=== PATIENT | female | born 1985 | race Caucasian/White ===

== ENCOUNTER 2022-01-12 09:21 | Outpatient (CLI) | payer MEDICAID, SELFPAY ==
[2022-01-12 13:15] LABS: Albumin* 4.6 g/dL (3.3-5.0); Chloride* 102 mmol/L (96-114); Potassium* 4.2 mmol/L (3.6-5.1); Sodium* 138 mmol/L (135-149)
[2022-01-12 13:18] LABS: Alanine Aminotransferase* 44 U/L (4-35); Alkaline Phosphatase* 100 U/L (40-150); Aspartate Amino Transferase* 40 U/L (12-35); Bilirubin Total* 1.5 mg/dL (0.1-1.5); Blood Urea Nitrogen* 11 mg/dL (5-24); Carbon Dioxide* 25 mmol/L (20-32); Creatinine* 0.5 mg/dL (0.5-1.5); Estimated Glomerular Filt Rate 123.81; Glucose* 121 mg/dL (60-115); Total Protein* 7.4 g/dL (6.0-8.3)
[2022-01-12 13:19] LABS: Calcium* 9.3 mg/dL (8.4-10.6)
[2022-01-12 13:37] LABS: Vitamin D 25 Hydroxy* 40 ng/mL (30-80)
== END 2022-01-12 09:22 | disposition home or self-care (01) ==
PROVIDERS: PCP Family Medicine; Visit Provider Nurse Practitioner Family
DX: E55.9 Vitamin D deficiency, unspecified (principal); Z79.899 Other long term (current) drug therapy
CPT/HCPCS: 80053; 82306; 82652; 84443

== ENCOUNTER 2022-04-11 09:13 | Outpatient (CLI) | payer MEDICAID, SELFPAY ==
--- OUTSIDE RECORDS SUMMARY | 2022-04-11 09:37 | XMS_ITS | Clinical Summary ---
:1985 Author Organization [employer] [facility] [place] [address] Care Team Providers Name Role Phone Oscar Purcell MD Primary Care Provider [phone] Allergies Active Allergy Reactions Severity Noted Date Comments Blood-Group Specific Other - Describe In Unknown 05/06/2010 Patient has a passive Substance Comment Field anti-D. Blood product orders may be delayed. Please draw one red top and two purple top tube s for all Type and Screen/Type and Crossmatch orde rs. Hydrocodone Hives, Rash Unknown 05/06/2010 Medications Medication Sig Dispensed Refills Start Date End Date Status Adapalene 0.3 % APPLY A PEA-SIZED 2 02/23/2018 Active topical gel AMOUNT TO ACNE AT BEDTIME BP 5 % gel JO-ANN EXT AA Q HS 2 02/23/2018 Ac tive clindamycin 1% JO-ANN TO FACIAL 2 12/29/2017 Active (CLEOCIN-T) 1 % gel AREAS QHS minocycline (MINOCIN) TK 1 C PO BID 2 02/23/2018 Active 100 mg capsule spironolactone TK 2 TS PO QAM 3 02/23/2018 Active (ALDACTONE) 50 mg tablet spironolactone 0 03/11/2018 Acti ve (ALDACTONE) 25 mg tablet cyclobenzaprine TAKE 1 TABLET BY 60 tablet 0 04/30/2018 Active (FLEXERIL) 10 mg MOUTH THREE TIMES tabletIndications: DAILY. Chronic bilateral low back pain, with sciatica presence unspecified levonorgestrel Inject 1 Device 1 Device 0 04/08/2016 Active intrauterine device intrauterine one (MIRENA) 20 mcg/24 time for 1 dose. hours (5 yrs) 52 mg IUDIndications: IUD (intrauterine device) in place traMADol (ULTRAM) 50 Take 1 tablet by 50 tablet 0 04/30/2019 Active mg tabletIndications: mouth every 6 Chronic bilateral low hours if needed. back pain venlafaxine (EFFEXOR Take 1 capsule by 30 capsule 1 05/23/2019 Active XR) 150 mg mouth once daily Extended-Release with a meal. capsuleIndications: Moderate episode of recurrent major depressive disorder (HC) busPIRone (BUSPAR) 10 Take 1 tablet by 60 tablet 3 05/23/2019 Active mg tabletIndications: mouth 2 times Anxiety daily. hydrOXYzine pamoate Take 1 capsule by 60 capsule 0 05/23/2019 Active (VISTARIL) 25 mg mouth once daily. capsuleIndications: Anxiety DULoxetine (CYMBALTA) Take 60 mg by 0 12/04/2021 Active 60 mg Delayed-release mouth once daily. capsule levothyroxine 0 12/09/2021 Activ e (SYNTHROID) 100 mcg tablet lidocaine 5 % topical PLACE 1 PATCH ONTO 0 2 Active patch THE SKIN EVERY 24 HOURS FOR 10 DAYS prazosin (MINIPRESS) Take 2 mg by mouth 0 08/24/2021 Active 2 mg capsule at bedtime. Adderall XR 30 mg Take 30 mg by 0 12/21/2021 Active Extended-Release mouth once daily. capsule Active Problems Problem Noted Date Cervical high risk HPV (human papillomavirus) test pos itive 04/08/2019 Overview: 03/2019 NIL/HPV+, HPV 18+, HPV 16 negati ve 08/2019 [place]: Cervicitis Plan: Repeat pap/HPV testing in 1 year ( DUE 08/2020) Controlled substance agreement signed 04/18/2018 Overview: Controlled substance agreement for Adder all on file and signed 04/18/18. Designated pharmacy: [facility] Prescribing physician: Opal Iglesias CNP. Diagnosis: ADHD Maryann Tang .................... 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 Moderate episode of recurrent major depressive disorde r 10/31/2017 Anxiety 10/31/2017 Obesity (BMI 30-39.9) 10/31/2017 Resolved Problems Problem Noted Date Resolved Date Threatened premature labor, antepartum(644.03) 05/06/2010 10/31/2017 Obesity in , antepartum 05/06/2010 018 with other poor obstetric history(V23.49) 05/06/20 10 10/31/2017 Immunizations Name Administration Dates Next Due Influenza Virus, Unspecified 05/11/2002 Influenza, IIV4 05/04/2010, 03/30/2009, 04/24/2004 Td (Age >=7 Years) 10/31/2017, 02/07/1998 Tdap 03/30/2009 Family History Medical History Relation Name Comments Alcoholism Brother Diabetes Brother Cancer Mother Depression Mother Diabetes Mother Hypertension Mother Obesity Mother Relation Name Status Comments Brother Mother Social History Tobacco Use Types Packs/Day Years Used Date Former Smoker Smokeless Tobacco: Never Used Tobacco Cessation: Counseling Given: Yes Alcohol Use Standard Drinks/Week Comments No 0 (1 standard drink = 0.6 oz pure alcoho l) Sex Assigned at Date Recorded Not on file Obstetrics History Para Term AB IAB SAB Ectopic Multiple Living Live Births 5 3 1 2 1 1 3 3 Date Outcome GA Total Labor/2nd/3rd Weight Sex Delivery Anes PTL Kaycee A 1 A5 Name Clin Labor 05/29 Term 39w 3.4 kg F Vag-Spont Y Raina Ch dread 02 0d (7 lb 8 ng a oz) Delivery Location: [facility] 07/2003 32w0d 1.42 kg (3 lb 2 oz) M Vag-Spont Y Living [place] Delivery Location: [facility] 07/2004 35w0d 3.83 kg (8 lb 7 oz) F Vag-Spont Living [place] Delivery Location: [facility] 08/2008 SAB 6w0d SPONTANEOUS Last Filed Vital Signs Vital Sign Reading Time Taken Comments Blood Pressure 122/82 08/16/2019 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 Pulse 88 08/16/2019 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 Temperature 36.9 ??C (98.4 ??F) 12/10/2021 9:46 AM CDT Respiratory Rate 18 05/08/2010 10:00 AM CDT Oxygen Saturation 98% 05/06/2010 4:00 PM CDT Inhaled Oxygen Concentration - - Weight 131.5 kg (290 lb) 01/07/2022 1:35 PM CDT Height 170.2 cm (5' 7) 01/07/2022 1:35 PM CDT Body Mass Index 45.42 01/07/2022 1:35 PM CDT Plan of Treatment Health Maintenance Due Date Last Done Comments Hepatitis C screening for age 1004/19/2002 18-79 Depression screening for age 12+ 05/23/2020 05/23/2019, , 04/05/2019, Additional history exists Pap test for age 21-65 09/05/2020 09/05/2019, 04/08/2019, 04/08/2019, Additional history exists COVID-19 vaccine series (3 - 05/18/2021 12/16/2020, 021 Booster for Pfizer series) Influenza for age 9-49 03/10/2022 05/04/2010, 03/30/2009, 04/24/2004, Additional history exists BMI (ht and wt on same day) for 01/07/2023 01/07/2022, 06/0 09/2021, age 18+ 08/16/2019, Additional history exists Tetanus booster 11/01/2027 10/31/2017, 03/30/2009, 02/07/1998 Tdap Completed 03/30/2009 Results Not on filefrom Last 3 Months Insurance Payer Benefit Plan / Subscriber ID Effective Dates Phone Addre ss Type Group SAUL HUGHES MA [id number] 2021-Present [address] [place] [address] [id number] (Home) [address] [address] [place] [address] Advance Directives Latest Code Status on File Code Status Date Activated Date Inactivated Comments Full Code 05/06/2010 2:23 AM 05/08/2010 12:57 PM 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
[2022-04-11 10:53] LABS: Albumin* 4.2 g/dL (3.3-5.0); Chloride* 101 mmol/L (96-114)
[2022-04-11 10:54] LABS: Potassium* 4.1 mmol/L (3.6-5.1); Sodium* 137 mmol/L (135-149)
[2022-04-11 10:56] LABS: Alkaline Phosphatase* 104 U/L (40-150); Aspartate Amino Transferase* 24 U/L (12-35); Bilirubin Total* 0.4 mg/dL (0.1-1.5); Blood Urea Nitrogen* 14 mg/dL (5-24); Carbon Dioxide* 25 mmol/L (20-32); Cholesterol* 165 mg/dL (90-199); Creatinine* 0.6 mg/dL (0.5-1.5); Estimated Glomerular Filt Rate 118 ml/min; Glucose* 118 mg/dL (60-115); Triglycerides* 73 mg/dL (40-149)
[2022-04-11 10:57] LABS: Alanine Aminotransferase* 22 U/L (4-35); Calcium* 9.2 mg/dL (8.4-10.6); HDL Cholesterol* 47 mg/dL (>=50); LDL Cholesterol Calculated 103 mg/dL (<100)
[2022-04-11 11:10] LABS: Vitamin D 25 Hydroxy* 34 ng/mL (30-80)
== END 2022-04-11 09:14 | disposition home or self-care (01) ==
PROVIDERS: PCP Family Medicine; Visit Provider Family Medicine
DX: Z00.00 Encounter for general adult medical examination without abnormal findings (principal); E55.9 Vitamin D deficiency, unspecified; E78.5 Hyperlipidemia, unspecified; R73.03 Prediabetes; R79.89 Other specified abnormal findings of blood chemistry; E66.01 Morbid (severe) obesity due to excess calories; Z68.42 Body mass index [BMI] 45.0-49.9, adult; E03.9 Hypothyroidism, unspecified
CPT/HCPCS: 80053; 80061; 82306; 84443

== ENCOUNTER 2022-07-27 08:30 | Outpatient (CLI) | payer MEDICAID, SELFPAY ==
[2022-07-27 12:16] LABS: Chlamydia DNA Amplified* NOT DETECTED (No Detected); GC DNA Amplified* NOT DETECTED (No Detected)
== END 2022-07-27 08:31 | disposition home or self-care (01) ==
LOC: NFLDREF 08:35
PROVIDERS: PCP Family Medicine; Visit Provider Registered Nurse
DX: Z11.3 Encounter for screening for infections with a predominantly sexual mode of transmission (principal)
CPT/HCPCS: 87491; 87591

== ENCOUNTER 2025-04-25 08:00 | Outpatient (CLI) | payer MEDICAID, SELFPAY ==
[2025-04-25 21:36] LABS: Hematocrit* 46.6 % (33.0-51.0); Hemoglobin* 14.9 gm/dL (12.0-16.0); Immature Granulocytes Pct Auto 0.1 %; Mean Corpuscular HGB Conc 32 gm/dL (32-36); Mean Corpuscular Hemoglobin 28 pg (26-34); Mean Corpuscular Volume 87 fL (80-100); RDW Coefficient of Variation % 13.1 % (11.5-15.5); Red Blood Count* 5.34 m/uL (4.00-5.20); White Blood Count* 11.06 K/uL (4.50-11.00)
[2025-04-25 21:43] LABS: Immature Granulocytes Abs Auto 0.00 K/uL (0.00-0.30); Lymphocytes Absolute Auto 4.50 K/uL (0.90-2.90); Slide Review Reflex No
[2025-04-25 21:46] LABS: Albumin* 4.3 g/dL (3.3-5.0); Chloride* 102 mmol/L (96-114); Potassium* 4.4 mmol/L (3.6-5.1); Sodium* 138 mmol/L (135-149)
[2025-04-25 21:49] LABS: Alanine Aminotransferase* 44 U/L (4-35); Alkaline Phosphatase* 107 U/L (40-150); Anion Gap 11 mEq/L (7-15); Aspartate Amino Transferase* 43 U/L (12-35); Bilirubin Total* 0.5 mg/dL (0.1-1.5); Blood Urea Nitrogen* 8 mg/dL (5-24); Calcium* 9.4 mg/dL (8.4-10.6); Carbon Dioxide* 25 mmol/L (20-32); Creatinine* 0.6 mg/dL (0.5-1.5); Estimated Glomerular Filt Rate 116 ml/min; Glucose* 126 mg/dL (60-115); Total Protein* 7.7 g/dL (6.0-8.3)
[2025-04-25 22:03] LABS: Free T4 Free Thyroxine* 1.33 ng/dL (0.70-1.85); Vitamin D 25 Hydroxy* 20 ng/mL (30-80)
[2025-04-27 08:58] LABS: TPO Antibody 0.3 IU/mL (0.0-9.0)
== END 2025-04-25 08:01 | disposition home or self-care (01) ==
LOC: NPINS 05-06 08:45
PROVIDERS: PCP Internal Medicine; Visit Provider Physician Assistant
DX: R73.03 Prediabetes (principal); R79.89 Other specified abnormal findings of blood chemistry; R03.0 Elevated blood-pressure reading, without diagnosis of hypertension; G89.4 Chronic pain syndrome; E55.9 Vitamin D deficiency, unspecified; E66.89 Other obesity not elsewhere classified; F11.288 Opioid dependence with other opioid-induced disorder; F91.9 Conduct disorder, unspecified; M48.02 Spinal stenosis, cervical region
CPT/HCPCS: 80053; 82306; 84439; 84443; 84480; 85025; 86376; 86800